=== PATIENT | female | born 1955 | race Two or more races ===

== ENCOUNTER 2021-04-29 12:42 | Observation (INO) | payer OTHER ==
[~2021-04-29] VITALS: Ht 157.5 cm; Wt 72.6 kg
[2021-04-29 13:40] LABS: Basophils # (auto) 0 10 ^3/uL (0-0.2); Basophils % (auto) 0.4 % (0.0-2.0); Eosinophils # (auto) 0 10 ^3/uL (0-0.8); Eosinophils % (auto) 0.1 % (0.0-7.0); Hematocrit 40.6 % (36.0-46.0); Hemoglobin 13.9 g/dL (12.2-16.2); Lymphocytes # (auto) 1.4 10 ^3/uL (0.4-5.4); Lymphocytes % (auto) 23.7 % (10.0-50.0); Mean Corpuscular Hemoglobin 30.4 pg (28.0-32.0); Mean Corpuscular Hgb Conc. 34.3 g/dL (32.0-36.0); Mean Corpuscular Volume 88.7 fL (80.0-100.0); Monocytes # (auto) 0.4 10 ^3/uL (0-1.3); Monocytes % (auto) 7.1 % (0.0-12.0); Neutrophils % (auto) 68.7 % (37.0-80.0); Nucleated Red Blood Cells % 0.1 %; Red Blood Cells 4.58 10^6/uL (4.0-5.20); Red Cell Distribution Width 15.8 % (11.8-14.3); White Blood Cell 5.9 10^3/uL (4.4-10.8)
[2021-04-29 14:00] LABS: Albumin 3.7 g/dL (3.4-5.0); Anion Gap 14 (5-15); Blood Urea Nitrogen 31 mg/dL (7-18); Calcium 9.6 mg/dL (8.5-10.1); Carbon Dioxide 22 mmol/L (21-32); Chloride 88 mmol/L (98-107); Glucose 99 mg/dL (74-106); Potassium 3.5 mmol/L (3.5-5.1); Sodium 124 mmol/L (136-145)
[2021-04-29 14:06] LABS: Alanine Aminotransferase 18 U/L (13-56); Alkaline Phosphatase 67 U/L (45-117); Aspartate Aminotransferase 12 U/L (15-37); BUN/Creatinine Ratio 20.5; Bilirubin, Total 0.4 mg/dL (0.2-1.0); GFR African American 44 mL/min; GFR Non-African American 37 mL/min; Total Protein 7.5 g/dL (6.4-8.2)
[2021-04-29] MEDS ORDERED: SODIUM CHLORIDE 0.9% 1,000 ML IV ONE ×2 (14:30)
[2021-04-29] MEDS ORDERED: IOHEXOL 350 MG/ML 100ML IJ ONE (17:10)
[2021-04-29] MEDS ORDERED: HYDROcodone-ACET 10/325MG TAB PO ONE (18:00)
[2021-04-29] MEDS ORDERED: ALBUTEROL SULF 2.5 MG/0.5ML(0.5%) NEB SOLN NEB PRN (21:15)
[2021-04-29] MEDS ORDERED: MORPHINE SULFATE INJECTION 2 MG/ML SYRG IV PRN (21:15)
[2021-04-29] MEDS ORDERED: ONDANSETRON HCL 4 MG/2 ML VIAL IV PRN (21:15)
[2021-04-29] MEDS ORDERED: TEMAZEPAM 15 MG CAP PO PRN (21:15)
[2021-04-29] MEDS ORDERED: ACETAMINOPHEN 325 MG TAB PO PRN (21:15)
[2021-04-29] MEDS ORDERED: NITROGLYCERIN 0.4 MG SL TAB SL PRN (21:15)
[2021-04-29] MEDS ORDERED: ATORVASTATIN 20 MG TAB PO SCH (22:00)
[2021-04-30] MEDS ORDERED: SODIUM CHLORIDE 0.9% 1,000 ML IV ONE (06:15)
[2021-04-30] MEDS ORDERED: NITROGLYCERIN 0.4 MG SL TAB SL PRN (06:15)
[2021-04-30] MEDS ORDERED: MORPHINE SULFATE INJECTION 2 MG/ML SYRG IV PRN ×2 (06:15→06:30)
[2021-04-30] MEDS ORDERED: ONDANSETRON HCL 4 MG/2 ML VIAL IV PRN (06:30)
[2021-04-30] MEDS ORDERED: DOCUSATE SOD 100 MG CAP PO SCH (08:00)
[2021-04-30 08:08] LABS: Basophils # (auto) 0 10 ^3/uL (0-0.2); Basophils % (auto) 0.6 % (0.0-2.0); Eosinophils # (auto) 0 10 ^3/uL (0-0.8); Eosinophils % (auto) 0.3 % (0.0-7.0); Hematocrit 39.3 % (36.0-46.0); Hemoglobin 13.4 g/dL (12.2-16.2); Lymphocytes # (auto) 1.1 10 ^3/uL (0.4-5.4); Lymphocytes % (auto) 18.1 % (10.0-50.0); Mean Corpuscular Hemoglobin 29.9 pg (28.0-32.0); Mean Corpuscular Volume 87.7 fL (80.0-100.0); Monocytes # (auto) 0.4 10 ^3/uL (0-1.3); Monocytes % (auto) 6.5 % (0.0-12.0); Neutrophils # (auto) 4.6 10 ^3/uL (1.6-8.6); Neutrophils % (auto) 74.5 % (37.0-80.0); Red Blood Cells 4.49 10^6/uL (4.0-5.20); Red Cell Distribution Width 15.6 % (11.8-14.3); White Blood Cell 6.1 10^3/uL (4.4-10.8)
[2021-04-30 08:13] LABS: INR 1.11 (0.9-1.15)
[2021-04-30 08:16] LABS: Albumin 3.5 g/dL (3.4-5.0); Anion Gap 11 (5-15); Blood Urea Nitrogen 26 mg/dL (7-18); Calcium 9.1 mg/dL (8.5-10.1); Carbon Dioxide 23 mmol/L (21-32); Chloride 93 mmol/L (98-107); Glucose 101 mg/dL (74-106); Sodium 127 mmol/L (136-145)
[2021-04-30 08:21] LABS: Alanine Aminotransferase 18 U/L (13-56); Alkaline Phosphatase 62 U/L (45-117); Aspartate Aminotransferase 16 U/L (15-37); BUN/Creatinine Ratio 25.5; Bilirubin, Total 0.5 mg/dL (0.2-1.0); GFR African American 70 mL/min; GFR Non-African American 58 mL/min
[2021-04-30] MEDS ORDERED: LISINOPRIL 5 MG TAB PO SCH (10:00)
[2021-04-30] MEDS ORDERED: PANTOPRAZOLE 40 MG TAB PO SCH (10:00)
[2021-04-30] MEDS ORDERED: FUROSEMIDE 40 MG TAB PO SCH (10:00)
[2021-04-30] MEDS ORDERED: POTASSIUM CHL 10 Meq TABLET PO SCH (10:00)
[2021-04-30] MEDS ORDERED: buPROPion HCL 75 MG TAB PO SCH (10:00)
[2021-04-30] MEDS ORDERED: HCTZ 25 MG TAB PO SCH (10:00)
[2021-04-30] MEDS ORDERED: DOCUSATE SOD 100 MG CAP PO ONE (10:23)
[2021-04-30] MEDS ORDERED: IPRATROPIUM BROM 0.5 MG/2.5ML INH SOL NEB SCH (12:00)
[2021-04-30] MEDS ORDERED: ALBUTEROL SULF 2.5 MG/0.5ML(0.5%) NEB SOLN NEB SCH (12:00)
[2021-04-30 12:07] VITALS: BP 102/37
[2021-04-30] MEDS ORDERED: AZITHROMYCIN 500MG/ 250ML 250 ML IV SCH (12:27)
[2021-04-30] MEDS ORDERED: POTASSIUM CHL 20 Meq TABLET PO ONE (12:30)
[2021-04-30] MEDS ORDERED: ENOXAPARIN SOD 80 MG/0.8ML SYRINGE SC SCH (12:30)
[2021-04-30] MEDS ORDERED: methylPREDNISolone SOD SUCC 125 MG/2 ML VL IV SCH (14:00)
== END 2021-04-30 13:46 | disposition home or self-care (01) ==
LOC: ER 12:42 → EDBD 12:42 → OVERFLOW 04-30 06:01
PROVIDERS: ADMIT Internal Medicine; ATTEND Internal Medicine
DX: R07.89 Other chest pain (principal); Z20.822 Contact with and (suspected) exposure to COVID-19; R06.03 Acute respiratory distress; J43.9 Emphysema, unspecified; I26.99 Other pulmonary embolism without acute cor pulmonale; I27.21 Secondary pulmonary arterial hypertension; E87.1 Hypo-osmolality and hyponatremia; F17.210 Nicotine dependence, cigarettes, uncomplicated; I10 Essential (primary) hypertension; F41.9 Anxiety disorder, unspecified; D84.9 Immunodeficiency, unspecified; R06.02 Shortness of breath; E87.6 Hypokalemia; Z79.01 Long term (current) use of anticoagulants; Z86.711 Personal history of pulmonary embolism; Z86.718 Personal history of other venous thrombosis and embolism
CPT/HCPCS: 36415; 71045; 71275; 80053; 83880; 84484; 85025; 85610; 87426; 93005; 93306; 94640; 96360; 96361; 96372; 99285; G0378; J1650; Q9967